=== PATIENT | male | born 1965 | race Caucasian/White ===

== ENCOUNTER 2018-08-02 10:07 | Emergency (ER) | payer OTHER, SELFPAY ==
[2018-08-02] MEDS ORDERED: Nitroglycerin 0.4 MG TAB 1 EACH ONE (10:21)
[2018-08-02] MEDS ORDERED: Aspirin Chewable 81 MG TAB ONE (10:29)
[2018-08-02] MEDS ORDERED: Metoprolol Tartrate 5 MG/5 ML VIAL ONE (10:29)
[2018-08-02] MEDS ORDERED: Fentanyl 100 MCG/2 ML VIAL ONE (10:29)
[2018-08-02 10:30] LABS: #Basophils 0.1 thou/uL (0.0-0.2); #Lymphocytes 1.9 thou/uL (1.20-3.40); #Monocytes 0.6 thou/uL (0.11-0.59); #Neutrophils 4.7 thou/uL (1.40-6.50); %Basophils 0.8 % (0.0-1.0); %Eosinophils 0.4 % (0.0-10.0); %Lymphocytes 26.5 % (21.0-51.0); %Monocytes 8.1 % (0.0-10.0); %Neutrophils 64.2 % (42.0-75.0); Hemoglobin 15.8 g/dL (14.0-18.0); Mean Corpuscular Hemoglobin 32.1 pg (27.0-31.0); Mean Corpuscular Volume 97.2 fL (78.0-98.0); Mean Platelet Volume 7.3 fL (7.4-10.4); Platelet Count 200 thou/uL (130-400); RBC Distribution Width 11.7 % (11.5-14.5); Red Blood Cell (RBC) Count 4.93 mill/uL (4.70-6.10); White Blood Cell (WBC) Count 7.3 thou/uL (4.8-10.8)
[2018-08-02 10:46] LABS: ALT (SGPT) 25 U/L (8-55); AST (SGOT) 45 U/L (5-34); Albumin 4.5 g/dL (3.5-5.0); Alkaline Phosphatase 86 U/L (40-150); Anion Gap 18 mmol/L (10-20); BUN (Urea Nitrogen) 13 mg/dL (8.4-25.7); Bilirubin, Total 0.9 mg/dL (0.2-1.2); Calc. Creatinine Clearance 0 mL/min (70-130); Calcium 9.8 mg/dL (7.8-10.44); Carbon Dioxide 22 mmol/L (22-29); Chloride 104 mmol/L (98-107); Estimated GFR-MDRD 78; Globulin 3.4 g/dL (2.4-3.5); Glucose 141 mg/dL (70-105); Lipase 90 U/L (8-78); Potassium 3.7 mmol/L (3.5-5.1); Protein, Total 7.9 g/dL (6.0-8.3); Sodium 140 mmol/L (136-145)
[2018-08-02] MEDS ORDERED: Nitroglycerin 50 MG/250 ML BOT 250 ML ONE (13:28)
[2018-08-02] MEDS ORDERED: Heparin 10,000 UNITS/1 ML VIAL ONE (13:29)
[2018-08-02] MEDS ORDERED: Heparin 25,000 units/D5W 500 ML ONE (13:30)
--- NOTE | 2018-08-02 18:57 | RAD ---
PORTABLE CHEST: 08/02/18 The heart is normal in size. The lungs are clear. There is no vascular congestion, edema, or pleural effusion. Mediastinum was unremarkable. IMPRESSION: No acute thoracic finding. POS: HOME
== END 2018-08-02 10:55 | disposition home or self-care (01) ==
LOC: BURERS 10:07
DX: I21.3 ST elevation (STEMI) myocardial infarction of unspecified site (principal)
CPT/HCPCS: 71045; 80053; 82553; 83690; 84484; 85025; 93005; 94760; 96374; 96375; 96376; J1644; J3010

== ENCOUNTER 2023-09-28 13:58 | Emergency (ER) | payer OTHER ==
[2023-09-28 14:25] LABS: #Lymphocytes 1.2 thou/uL (1.20-3.40); #Monocytes 0.5 thou/uL (0.11-0.59); #Neutrophils 4.1 thou/uL (1.40-6.50); %Basophils 0.6 % (0.0-1.0); %Eosinophils 0.2 % (0.0-10.0); %Lymphocytes 20.2 % (21.0-51.0); %Monocytes 8.4 % (0.0-10.0); %Neutrophils 70.6 % (42.0-75.0); Hematocrit 42.6 % (42.0-52.0); Hemoglobin 14.1 g/dL (14.0-18.0); Mean Corpuscular Hemoglobin 32.1 pg (27.0-31.0); Mean Corpuscular Volume 97.3 fl (78.0-98.0); Mean Platelet Volume 7.1 fL (7.4-10.4); Platelet Count 187 10x3/uL (130-400); RBC Distribution Width 12.7 % (11.5-14.5); Red Blood Cell (RBC) Count 4.38 mill/uL (4.70-6.10); White Blood Cell (WBC) Count 5.7 10x3/uL (4.8-10.8)
[2023-09-28 14:30] LABS: PTT 27.5 sec (22.9-36.1)
[2023-09-28 14:38] LABS: ALT (SGPT) 29 U/L (8-55); AST (SGOT) 25 U/L (5-34); Albumin 4.5 g/dL (3.5-5.0); Alkaline Phosphatase 126 U/L (40-110); Anion Gap 15 mmol/L (10-20); BUN (Urea Nitrogen) 29 mg/dL (8.4-25.7); Bilirubin, Total 0.5 mg/dL (0.2-1.2); Calc. Creatinine Clearance 0 mL/min (70-130); Calcium 9.7 mg/dL (7.8-10.44); Carbon Dioxide 23 mmol/L (22-29); Chloride 105 mmol/L (98-107); Estimated GFR 94; Globulin 2.9 g/dL (2.4-3.5); Glucose 111 mg/dL (70-105); Potassium 3.5 mmol/L (3.5-5.1); Protein, Total 7.4 g/dL (6.0-8.3); Sodium 139 mmol/L (136-145)
[2023-09-28 14:39] LABS: Troponin I Less than 0.010 ng/mL (< 0.028)
[2023-09-28] MEDS ORDERED: Iopamidol 370 76% 100 ML VIAL ONE (16:35)
== END 2023-09-28 17:00 | disposition short-term general hospital (02) ==
LOC: BURERS 13:58
DX: I63.9 Cerebral infarction, unspecified (principal); R29.702 NIHSS score 2; I10 Essential (primary) hypertension; I25.2 Old myocardial infarction
CPT/HCPCS: 36416; 70450; 70496; 70498; 80053; 84484; 85025; 85610; 85730; 93005; Q9967